=== PATIENT | female | born 1955 | race Caucasian/White ===

== ENCOUNTER → 2019-07-15 | Outpatient (CLI) | payer OTHER, MEDICARE ==
[~2019-07-15] MED LIST: BUDE10.2 INH; LEVO125T5 PO; LORA-446 PO; MELO7.5T31 PO; MONT10TA6 PO; OMEP-110 PO; OMNIPAQUE 350 MG/ML, 100ML BOTTLE ONE; ROSU20TA2 PO; SERT100T32 PO; TAMS-11 PO; TIOT18CA INH; TRAM50TA2 PO
== END | disposition home or self-care (01) ==
LOC: CFH 13:28
PROVIDERS: ATTEND Internal Medicine Hematology & Oncology
DX: C79.51 Secondary malignant neoplasm of bone (principal); C50.912 Malignant neoplasm of unspecified site of left female breast; J84.10 Pulmonary fibrosis, unspecified; R59.0 Localized enlarged lymph nodes; K76.0 Fatty (change of) liver, not elsewhere classified; R91.8 Other nonspecific abnormal finding of lung field; K44.9 Diaphragmatic hernia without obstruction or gangrene; I70.0 Atherosclerosis of aorta; K57.30 Diverticulosis of large intestine without perforation or abscess without bleeding
CPT/HCPCS: 71260; 74177; Q9967

== ENCOUNTER 2019-07-16 07:24 | Day surgery (SDC) | payer OTHER, MEDICARE ==
[~2019-07-16] VITALS: Ht 162.6 cm; Wt 94.0 kg
[2019-07-16 08:38] VITALS: BP 125/81
[2019-07-16] MEDS ORDERED: LIDOCAINE 1%, 20ML ONE (08:47)
[2019-07-16] MEDS ORDERED: SODIUM CHLORIDE 0.9% 1,000 ML IV SCH (09:00)
[2019-07-16] MEDS ORDERED: VANCOMYCIN PMX 1GM/200ML 200 ML IV ONE (09:00)
[2019-07-16] MEDS ORDERED: LEVO125T5 PO (09:20)
[2019-07-16] MEDS ORDERED: TRAM50TA2 PO (09:20)
[2019-07-16] MEDS ORDERED: MELO7.5T31 PO (09:20)
[2019-07-16] MEDS ORDERED: ROSU20TA2 PO (09:20)
[2019-07-16] MEDS ORDERED: MONT10TA6 PO (09:20)
[2019-07-16] MEDS ORDERED: SERT100T32 PO (09:20)
[2019-07-16] MEDS ORDERED: TIOT18CA INH (09:20)
[2019-07-16] MEDS ORDERED: BUDE10.2 INH (09:20)
[2019-07-16] MEDS ORDERED: TAMS-11 PO (09:20)
[2019-07-16] MEDS ORDERED: LORA-446 PO (09:20)
[2019-07-16] MEDS ORDERED: OMEP-110 PO (09:20)
[2019-07-16] MEDS ORDERED: FENTANYL PF 100 MCG/2ML ONE (09:44)
[2019-07-16] MEDS ORDERED: NALOXONE 1 MG/ML, 2ML ONE (09:44)
[2019-07-16] MEDS ORDERED: FLUMAZENIL 0.1 MG/1 ML, 5ML ONE (09:44)
[2019-07-16] MEDS ORDERED: MIDAZOLAM 1 MG/ML, 5ML ONE (09:44)
== END 2019-07-16 13:15 | disposition home or self-care (01) ==
LOC: OUT 07:24
PROVIDERS: ATTEND Internal Medicine Hematology & Oncology
DX: Z45.2 Encounter for adjustment and management of vascular access device (principal); C50.912 Malignant neoplasm of unspecified site of left female breast; G47.30 Sleep apnea, unspecified; J43.9 Emphysema, unspecified; E03.9 Hypothyroidism, unspecified; E78.5 Hyperlipidemia, unspecified; E11.9 Type 2 diabetes mellitus without complications; K21.0 Gastro-esophageal reflux disease with esophagitis; Z88.1 Allergy status to other antibiotic agents; Z88.5 Allergy status to narcotic agent; Z88.0 Allergy status to penicillin; Z88.8 Allergy status to other drugs, medicaments and biological substances; Z98.51 Tubal ligation status; Z98.890 Other specified postprocedural states; Z87.891 Personal history of nicotine dependence; Z79.84 Long term (current) use of oral hypoglycemic drugs
CPT/HCPCS: 36561; 77001; 99156; 99157; C1788; J1642; J2250; J3010; J3370; J7030; 36556; J2310

== ENCOUNTER → 2019-10-30 | Outpatient (CLI) | payer OTHER, MEDICARE ==
[~2019-10-30] MED LIST changes: -OMNIPAQUE 350 MG/ML, 100ML BOTTLE ONE
== END | disposition home or self-care (01) ==
LOC: CFH 10:28
PROVIDERS: ATTEND Internal Medicine Cardiovascular Disease
DX: Z01.810 Encounter for preprocedural cardiovascular examination (principal); R07.89 Other chest pain; J43.9 Emphysema, unspecified; E78.5 Hyperlipidemia, unspecified; Z85.3 Personal history of malignant neoplasm of breast
CPT/HCPCS: 93306

== ENCOUNTER → 2019-11-05 | Outpatient (CLI) | payer OTHER, MEDICARE ==
[~2019-11-05] MED LIST changes: +REGADENOSON 0.4 MG/5 ML SYRINGE ONE
== END | disposition home or self-care (01) ==
LOC: CFH 11:57
PROVIDERS: ATTEND Internal Medicine Cardiovascular Disease
DX: Z01.810 Encounter for preprocedural cardiovascular examination (principal); R07.89 Other chest pain
CPT/HCPCS: 78452; 93017; A9502; J2785

== ENCOUNTER 2021-01-20 05:58 | Day surgery (SDC) | payer MEDICARE ==
[2021-01-17 14:00] LABS: BASOPHILS % (AUTO) 0 % (0-1); EOSINOPHILS % (AUTO) 7 % (1-7); LYMPHOCYTES % (AUTO) 15 % (22-44); MEAN CORPUSCULAR HEMOGLOBIN 28.5 pg (27.0-34.8); MEAN CORPUSCULAR HGB CONC 33.7 g/dL (32.4-35.8); MEAN PLATELET VOLUME 7.5 fL (7.4-10.4); MONOCYTES % (AUTO) 11 % (2-9); NEUTROPHILS % (AUTO) 67 % (42-75); PLATELET COUNT 184 x10^3/uL (130-400); RED BLOOD COUNT 4.29 x10^6/uL (3.82-5.3); RED CELL DISTRIBUTION WIDTH 16.2 % (9.6-15.2)
[2021-01-17 14:11] LABS: CHLORIDE 105 mmol/L (98-107)
[2021-01-17 14:19] LABS: ALANINE AMINOTRANSFERASE 35 U/L (12-78); ALBUMIN 3.7 g/dL (3.4-5.0); ALKALINE PHOSPHATASE 100 U/L (45-117); ANION GAP 4 mmol/L (5-15); BILIRUBIN,TOTAL 0.4 mg/dL (0.2-1.0); CALCIUM 8.7 mg/dL (8.5-10.1); TOTAL PROTEIN 7.7 g/dL (6.4-8.2)
[~2021-01-20] VITALS: Ht 162.6 cm; Wt 90.8 kg
[~2021-01-20 05:58] MED LIST changes: +ACET-2065 PO; +ACETAMINOPH PO; +ALBU18HF INH; +ALBU5SOL6 NEB; +ALPE1TAB3 PO; +ASCO100018 PO; +ASPI81TA45 PO; +ATOV750O PO; +BENZ200C48 PO; +BUT PO; +CAFF PO; +CALCIUM/MAG/ZINC PO; +CHOL10003 PO; +DICL100G25 TP; +DOCU240C31 PO; +DOXY100T PO; +FLUT9.9S NAS; +FULV250S3 IM; +FURO-93 PO; +GABA800T5 PO; +GLIM2TAB7 PO; +LORA-247 PO; +MULT-717 PO; +NITR100C PO; +NYST15CR2 TP; +ONDA4TAB7 PO; +OXYC5CAP2 PO; +POTASSIUM CL ER PO; +PRED20TA PO; +PROC10TA78 PO; -REGADENOSON 0.4 MG/5 ML SYRINGE ONE; +[UNRECOGNIZED DRUG - OTHER] IV
[2021-01-20] MEDS ORDERED: CHLORHEXIDINE 15 ML UDC PO ONE (06:30)
[2021-01-20] MEDS ORDERED: LACTATED RINGERS 1,000 ML IV SCH (06:30)
[2021-01-20 06:43] VITALS: BP 109/71
[2021-01-20] MEDS ORDERED: BUPIVACAINE/PF 0.5% ONE (06:59)
[2021-01-20] MEDS ORDERED: EPINEPHRINE 1 MG/ML, 1ML ONE (07:00)
[2021-01-20] MEDS ORDERED: HEPARIN 1,000 UNITS/ML, 10ML ONE ×2 (07:00→08:33)
[2021-01-20] MEDS ORDERED: LIDOCAINE/PF 1%, 30ML ONE (07:00)
[2021-01-20] MEDS ORDERED: PROTAMINE SULFATE 10 MG/ML, 5ML ONE (07:00)
[2021-01-20] MEDS ORDERED: THROMBIN 20,000 UNIT VIAL TP ONE (07:01)
[2021-01-20] MEDS ORDERED: FENTANYL PF 100 MCG/2ML ONE ×2 (07:06→10:50)
[2021-01-20] MEDS ORDERED: MIDAZOLAM 1 MG/ML, 2ML ONE ×2 (07:07→07:40)
[2021-01-20] MEDS ORDERED: ONDANSETRON 2MG/ML, 2ML IVPush PRN (07:30)
[2021-01-20] MEDS ORDERED: MEPERIDINE/PF 25MG/0.5ML IVPush PRN (07:30)
[2021-01-20] MEDS ORDERED: HYDROcodone/APAP 7.5-325MG/15ML UDC PO PRN (07:30)
[2021-01-20] MEDS ORDERED: PROMETHAZINE 25 MG/ML, 1ML IVPush PRN (07:30)
[2021-01-20] MEDS ORDERED: LIDOCAINE 1%, 20ML ONE (07:40)
[2021-01-20] MEDS ORDERED: EPHEDRINE 50 MG/ML, 1ML ONE (07:40)
[2021-01-20] MEDS ORDERED: SUGAMMADEX 200 MG/2 ML IVPush ONE (07:40)
[2021-01-20] MEDS ORDERED: PROPOFOL 10 MG/ML, 20ML ONE (07:40)
[2021-01-20] MEDS ORDERED: ONDANSETRON 2MG/ML, 2ML ONE (07:40)
[2021-01-20] MEDS ORDERED: CEFAZOLIN 1,000 MG ONE (07:40)
[2021-01-20] MEDS ORDERED: DEXAMETHASONE 4 MG/ML, 1ML ONE (07:40)
[2021-01-20] MEDS ORDERED: ROCURONIUM 10 MG/ML,10ML ONE (07:40)
[2021-01-20] MEDS ORDERED: APIXABAN 5 MG TABLET PO SCH ×2 (10:00→21:00)
[2021-01-20] MEDS ORDERED: APIX5TAB PO (10:06)
[2021-01-20] MEDS ORDERED: APIXABAN 5 MG TABLET ONE (10:19)
[2021-01-20] MEDS ORDERED: OXYcodone 5 MG/5 ML ORAL.SOL UDC ONE ×2 (10:24→15:30)
[2021-01-20] MEDS: OXYcodone 5 MG/5 ML ORAL.SOL UDC PO PRN ×2 (10:25→15:32)
[2021-01-20] MEDS ORDERED: APIXABAN 5 MG TABLET PO ONE (10:45)
[2021-01-20] MEDS: FENTANYL PF 100 MCG/2ML IV PRN ×2 (10:50→11:05)
[2021-01-20] MEDS ORDERED: LABETALOL 5MG/ML, 20ML IV PRN (11:00)
[2021-01-20] MEDS ORDERED: hydrALAzine 20 MG/ML, 1ML ONE (11:14)
[2021-01-20] MEDS ORDERED: HYDROmorphone 1 MG/ML, 1ML INJ ONE (11:18)
[2021-01-20] MEDS: HYDROmorphone 1 MG/ML, 1ML INJ IVPush PRN ×2 (11:25→13:03)
[2021-01-20] MEDS ORDERED: hydrALAzine 20 MG/ML, 1ML IV PRN (11:30)
[2021-01-20] MEDS ORDERED: VISIPAQUE 270 MG/ML, 50ML BOTTLE ONE (15:00)
== END 2021-01-20 17:00 | disposition home or self-care (01) ==
LOC: OUT 05:58
PROVIDERS: ATTEND Surgery
DX: I82.211 Chronic embolism and thrombosis of superior vena cava (principal); C79.81 Secondary malignant neoplasm of breast; C79.51 Secondary malignant neoplasm of bone; E11.9 Type 2 diabetes mellitus without complications; I10 Essential (primary) hypertension; F41.9 Anxiety disorder, unspecified; K21.9 Gastro-esophageal reflux disease without esophagitis; G47.33 Obstructive sleep apnea (adult) (pediatric); Z79.1 Long term (current) use of non-steroidal anti-inflammatories (NSAID); Z79.82 Long term (current) use of aspirin; Z79.84 Long term (current) use of oral hypoglycemic drugs; Z79.890 Hormone replacement therapy; Z79.891 Long term (current) use of opiate analgesic; Z79.899 Other long term (current) drug therapy; Z87.891 Personal history of nicotine dependence; Z88.0 Allergy status to penicillin; Z88.2 Allergy status to sulfonamides; Z88.5 Allergy status to narcotic agent; Z88.8 Allergy status to other drugs, medicaments and biological substances; Z82.49 Family history of ischemic heart disease and other diseases of the circulatory system
CPT/HCPCS: 36415; 37238; 37239; 71046; 75822; 80053; 82962; 85025; 93005; C1725; C1768; C1769; C1876; C1894; J0171; J0360; J0690; J1100; J1170; J1644; J2250; J2405; J2704; J2720; J3010; J7120; Q9966